=== PATIENT | female | born 1995 | race Caucasian/White ===

== ENCOUNTER 2023-04-05 19:15 | Observation (INO) | payer OTHER ==
[2023-04-05] MEDS: DEXTROSE 5%-LACTATED RINGERS 1,000 ML IV SCH (21:30)
[2023-04-05 21:58] LABS: BASO % 0.2 % (0-2.0); HEMATOCRIT 32.5 % (32.4-45.2); HEMOGLOBIN 10.3 GM/dL (10.7-15.3); LYMPH % 22.9 % (8-40); MCH 27.5 pg (25.7-33.7); MCHC 31.7 g/dl (32.0-36.0); MEAN CELL VOLUME 86.8 fl (80-96); MEAN PLT VOLUME 9.6 fl (7.5-11.1); MONO % 5.8 % (3.8-10.2); NEUT % 69.1 % (42.8-82.8); PLATELET COUNT 258 10^3/uL (134-434); RBC 3.74 M/mm3 (3.60-5.2); RDW 14.7 % (11.6-15.6); WHITE BLOOD COUNT 11.7 K/mm3 (4.0-10.0)
[2023-04-05] MEDS: MISOPROSTOL 25 MCG TABLET (COMPOUNDED BY PHARMACY) PV SCH (22:00)
[2023-04-05 22:10] LABS: INR 0.99 (0.83-1.09); PROTHROMBIN TIME (PATIENT) 11.5 SEC (9.7-13.0)
[2023-04-05 22:12] LABS: POTASSIUM 3.8 mmol/L (3.5-5.1)
[2023-04-05 22:13] LABS: ACTIVATED PTT 24.3 SECONDS (25.2-36.5)
[2023-04-05 22:16] LABS: ALBUMIN 2.7 g/dl (3.4-5.0); BLOOD UREA NITROGEN 5.6 mg/dL (7-18)
[2023-04-05 22:19] LABS: CREATININE 0.6 mg/dL (0.55-1.3)
[2023-04-05 22:20] LABS: BILIRUBIN,TOTAL 0.3 mg/dL (0.2-1)
[2023-04-05 22:21] LABS: TOT PROT 6.7 g/dl (6.4-8.2)
[2023-04-05 23:21] VITALS: BMI 35.0
[2023-04-06] MEDS ORDERED: OXYTOCIN 30 UNITS in 0.9% NS 30 UNIT/500 ML INFUS.BAG IVPB SCH (09:00)
[2023-04-06] MEDS: MISOPROSTOL 25 MCG TABLET (COMPOUNDED BY PHARMACY) PV SCH ×2 (09:14→17:16)
[2023-04-06] MEDS: DEXTROSE 5%-LACTATED RINGERS 1,000 ML IV SCH (13:05)
[2023-04-06 14:34] VITALS: TEMP 98.1
[2023-04-06 16:17] VITALS: BP 117/67; PULSE 70; RESP 18
== END 2023-04-06 17:05 | disposition home or self-care (01) ==
LOC: UNDOADMOB 19:15 → INTOOBSV 19:15 → JLDR 19:15
PROVIDERS: ADMIT Obstetrics & Gynecology Maternal & Fetal Medicine; ATTEND Obstetrics & Gynecology Maternal & Fetal Medicine
PROC: 3E0337Z Introduction of Electrolytic and Water Balance Substance into Peripheral Vein, Percutaneous Approach (ICD-10-PCS; principal; 2023-04-06)
DX: O14.03 Mild to moderate pre-eclampsia, third trimester (principal); O41.93X0 Disorder of amniotic fluid and membranes, unspecified, third trimester, not applicable or unspecified; Z3A.37 37 weeks gestation of pregnancy
CPT/HCPCS: 36415; 80053; 85025; 85610; 85730; 86850; 86900; 86901; 96360; 96361; G0378

== ENCOUNTER 2023-04-19 19:00 | Inpatient (IN) | payer OTHER ==
[2023-04-19 20:06] VITALS: BMI 35.2
[2023-04-19 21:06] LABS: BASO % 0.5 % (0-2.0); EOS % 0.7 % (0-4.5); HEMOGLOBIN 10.7 GM/dL (10.7-15.3); LYMPH % 26.3 % (8-40); MCH 28.7 pg (25.7-33.7); MCHC 33.5 g/dl (32.0-36.0); MEAN CELL VOLUME 85.6 fl (80-96); MEAN PLT VOLUME 9.4 fl (7.5-11.1); NEUT % 68.5 % (42.8-82.8); PLATELET COUNT 212 10^3/uL (134-434); RBC 3.74 M/mm3 (3.60-5.2); RDW 15.3 % (11.6-15.6); WHITE BLOOD COUNT 9.8 K/mm3 (4.0-10.0)
[2023-04-19 21:15] LABS: INR 0.98 (0.83-1.09); PROTHROMBIN TIME (PATIENT) 11.4 SEC (9.7-13.0)
[2023-04-19 21:18] LABS: ACTIVATED PTT 24.3 SECONDS (25.2-36.5)
[2023-04-19 21:30] LABS: POTASSIUM 3.6 mmol/L (3.5-5.1)
[2023-04-19 21:32] LABS: CALCIUM 8.8 mg/dL (8.5-10.1)
[2023-04-19 21:36] LABS: CREATININE 0.5 mg/dL (0.55-1.3)
[2023-04-19] MEDS ORDERED: SODIUM CHLORIDE 500 ML IV STA (21:48)
[2023-04-19] MEDS: DEXTROSE 5%-LACTATED RINGERS 1,000 ML IV SCH (22:00)
[2023-04-19] MEDS: MISOPROSTOL 100 MCG TABLET PV SCH (22:55)
[2023-04-20] MEDS ORDERED: PENICILLIN G POTASSIUM 5,000,000 PRE-DOCK IN NS 250 ML IVPB ONE (00:55)
[2023-04-20] MEDS ORDERED: PENICILLIN G POTASSIUM 5,000,000 UNIT/250 ML BAG IVPB ONE (00:58)
[2023-04-20] MEDS: PENICILLIN G POTASSIUM 20,000,000 (20Mm) UNITS VIAL IVPB ONE ×2 (01:10→12:34)
[2023-04-20 02:21] LABS: ALBUMIN 2.7 g/dl (3.4-5.0)
[2023-04-20 02:26] LABS: BILIRUBIN,TOTAL 0.1 mg/dL (0.2-1); TOT PROT 6.5 g/dl (6.4-8.2)
[2023-04-20] MEDS: MISOPROSTOL 100 MCG TABLET PV SCH ×6 (04:21→23:06)
[2023-04-20] MEDS ORDERED: morphine SULFATE 4 MG/ML VIAL IVPB ONE (04:57)
[2023-04-20] MEDS ORDERED: PENICILLIN G POTASSIUM 20,000,000 (20Mm) UNITS VIAL IVPB SCH (05:00)
[2023-04-20] MEDS: morphine CARPU-JECT 8 MG/1 ML DISP.SYRIN IVPB ONE ×2 (05:05→12:34)
[2023-04-20] MEDS: PENICILLIN G POTASSIUM 2,500,000 UNIT in SODIUM CHLORIDE 100 ML IVPB SCH ×5 (06:15→23:08)
[2023-04-20] MEDS: DEXTROSE 5%-LACTATED RINGERS 1,000 ML IV SCH ×2 (06:15→09:30)
[2023-04-20] MEDS ORDERED: FENTANYL/BUPIVACAINE/NS/PF - PCEA - 50 ML DISP.SYRIN EP ONE ×3 (08:27→17:01)
[2023-04-20] MEDS ORDERED: NALOXONE HCL 0.4 MG/ML VIAL IVPUSH PRN (08:30)
[2023-04-20] MEDS ORDERED: FENTANYL CITRATE/PF 50 MCG/ML VIAL ONE (08:35)
[2023-04-20] MEDS: FENTANYL/BUPIVACAINE/NS/PF - PCEA - 50 ML DISP.SYRIN EP SCH ×3 (08:55→17:02)
[2023-04-20] MEDS ORDERED: SODIUM CHLORIDE 1,000 ML IV ONE (10:15)
[2023-04-20] MEDS ORDERED: OXYTOCIN 30 UNITS in 0.9% NS 30 UNIT/500 ML INFUS.BAG IVPB ONE (10:59)
[2023-04-20] MEDS ORDERED: OXYTOCIN 30 UNITS in 0.9% NS 30 UNIT/500 ML INFUS.BAG IVPB SCH (11:15)
[2023-04-20] MEDS ORDERED: LIDOCAINE HCL 1% PRESERVATIVE FREE - 30ML VIAL ONE (17:19)
[2023-04-20] MEDS ORDERED: OXYTOCIN 20 UNITS in 0.9% NS 20 UNIT/1,000 ML INFUS.BAG IV ONE (17:19)
[2023-04-20 19:42] LABS: CORD BASE EXCESS -11.7 mmol/L (0-2); CORD HCO3 16.3 mmHg (20-29); CORD pH 7.186 (7.14-7.44)
[2023-04-20 19:42] LABS: CORD BASE EXCESS -8.2 mmol/L (0-2); CORD HCO3 17.1 mmHg (20-29); CORD PCO2 35.4 mmHg (30-78); CORD pH 7.302 (7.14-7.44)
[2023-04-20] MEDS ORDERED: ACETAMINOPHEN 325 MG TABLET (FP) PO PRN (21:16)
[2023-04-20] MEDS ORDERED: BENZOCAINE 28 GM HEMORRHOIDAL OINTMENT TP PRN (21:16)
[2023-04-20] MEDS ORDERED: WITCH HAZEL 50% (TUCKS) 40 PAD/JAR PAD TP PRN (21:16)
[2023-04-20] MEDS ORDERED: OXYTOCIN 20 UNITS in 0.9% NS 20 UNIT/1,000 ML INFUS.BAG IV SCH (21:30)
[2023-04-20] MEDS: IBUPROFEN 600 MG TABLET (FP) PO PRN (22:00)
[2023-04-20] MEDS ORDERED: IBUPROFEN 600 MG TABLET (FP) PO ONE (22:01)
[2023-04-20 23:01] VITALS: RESP 18
[2023-04-21 08:43] LABS: BASO % 0.3 % (0-2.0); EOS % 0.6 % (0-4.5); HEMATOCRIT 24.2 % (32.4-45.2); HEMOGLOBIN 7.6 GM/dL (10.7-15.3); LYMPH % 14.3 % (8-40); MCH 27.5 pg (25.7-33.7); MCHC 31.6 g/dl (32.0-36.0); MONO % 3.9 % (3.8-10.2); NEUT % 80.9 % (42.8-82.8); PLATELET COUNT 174 10^3/uL (134-434); RBC 2.78 M/mm3 (3.60-5.2); RDW 15.3 % (11.6-15.6); WHITE BLOOD COUNT 15.9 K/mm3 (4.0-10.0)
[2023-04-21] MEDS: PRENATAL VITAMINS W/ FOLIC ACID TABLET (FP) PO SCH (09:10)
[2023-04-21] MEDS: FERROUS SO4 325 MG TABLET (FP) PO SCH ×3 (09:10→18:00)
[2023-04-21] MEDS: IBUPROFEN 600 MG TABLET (FP) PO PRN ×4 (09:10→23:38)
[2023-04-22] MEDS: FERROUS SO4 325 MG TABLET (FP) PO SCH ×2 (08:17→13:25)
[2023-04-22] MEDS: PRENATAL VITAMINS W/ FOLIC ACID TABLET (FP) PO SCH (09:12)
[2023-04-22 09:18] VITALS: BP 119/75; PULSE 96; TEMP 98.5
== END 2023-04-22 14:05 | disposition home or self-care (01) | DRG 807 ==
LOC: JLDR 19:00 → J3W 04-20 22:39
PROVIDERS: ADMIT Obstetrics & Gynecology Maternal & Fetal Medicine; ATTEND Obstetrics & Gynecology Maternal & Fetal Medicine
PROC: 10D07Z6 Extraction of Products of Conception, Vacuum, Via Natural or Artificial Opening (ICD-10-PCS; principal; 2023-04-20)
PROC: 0UQG7ZZ Repair Vagina, Via Natural or Artificial Opening (ICD-10-PCS; 2023-04-20)
PROC: 0W8NXZZ Division of Female Perineum, External Approach (ICD-10-PCS; 2023-04-20)
DX: O71.4 Obstetric high vaginal laceration alone (principal); Z37.0 Single live birth; O14.04 Mild to moderate pre-eclampsia, complicating childbirth; O13.4 Gestational [pregnancy-induced] hypertension without significant proteinuria, complicating childbirth; Z3A.39 39 weeks gestation of pregnancy
CPT/HCPCS: 36415; 36600; 80048; 80053; 82803; 85025; 85610; 85730; 86780; 86850; 86900; 86901; 88307-TC